=== PATIENT | male | born 1950 | race Caucasian/White ===

== ENCOUNTER 2018-03-16 11:18 | Emergency (ER) | payer OTHER ==
[2018-03-16 11:25] VITALS: BMI 22.0
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
[2018-03-16 13:22] LABS: BASO % 0.3 % (0-2.0); EOS % 0.5 % (0-4.5); HEMATOCRIT 39.6 % (35.4-49); HEMOGLOBIN 13.8 GM/dL (11.7-16.9); LYMPH % 7.1 % (8-40); MCH 32.1 pg (25.7-33.7); MCHC 34.7 g/dl (32.0-35.9); MEAN CELL VOLUME 92.5 fl (80-96); MEAN PLT VOLUME 7.2 fl (7.5-11.1); MONO % 6.7 % (3.8-10.2); NEUT % 85.4 % (42.8-82.8); PLATELET COUNT 165 K/MM3 (134-434); RBC 4.28 M/mm3 (4.00-5.60); RDW 12.5 % (11.9-15.9); WHITE BLOOD COUNT 7.6 K/mm3 (4.0-10.0)
[2018-03-16 13:58] LABS: BLOOD UREA NITROGEN 24 mg/dL (7-18); CREATININE 1.1 mg/dL (0.7-1.3); GLUCOSE,RANDOM 104 mg/dL (74-106)
[2018-03-16 13:59] LABS: ALBUMIN 3.7 g/dl (3.4-5.0); ANION GAP 6 (8-16); CALCIUM 8.7 mg/dL (8.5-10.1); CHLORIDE 101 mmol/L (98-107); CO2 29 mmol/L (21-32); SGOT/AST 16 U/L (15-37); SGPT/ALT 26 U/L (12-78); SODIUM 136 mmol/L (136-145)
[2018-03-16 14:03] LABS: ALK PHOS 67 U/L (45-117); BILIRUBIN,TOTAL 0.2 mg/dL (0.2-1.0); TOT PROT 6.7 g/dl (6.4-8.2)
[2018-03-16] MEDS ORDERED: BACITRACIN 0.9 GM PACKET TP ONE (15:53)
[2018-03-16 16:04] VITALS: BP 143/78; PULSE 66; TEMP 98
--- NOTE | 2018-03-16 16:10 | EKG ---
Test Reason : Blood Pressure : / mmHG Vent. Rate : 060 BPM Atrial Rate : 060 BPM P-R Int : 200 ms QRS Dur : 106 ms QT Int : 434 ms P-R-T Axes : 079 015 050 degrees QTc Int : 434 ms NORMAL SINUS RHYTHM NORMAL ECG NO PREVIOUS ECGS AVAILABLE Confirmed by CINTHIA FOLEY MD ([id number]) on 03/16/2018 4:10:01 PM Referred By: Confirmed By:CINTHIA FOLEY MD
== END 2018-03-16 16:15 | disposition home or self-care (01) ==
LOC: JER 11:18
DX: S00.211A Abrasion of right eyelid and periocular area, initial encounter (principal); S00.31XA Abrasion of nose, initial encounter; W18.39XA Other fall on same level, initial encounter; Y93.89 Activity, other specified; Y92.038 Other place in apartment as the place of occurrence of the external cause; Y99.8 Other external cause status; R26.2 Difficulty in walking, not elsewhere classified; G40.909 Epilepsy, unspecified, not intractable, without status epilepticus; I10 Essential (primary) hypertension; E78.5 Hyperlipidemia, unspecified; F17.210 Nicotine dependence, cigarettes, uncomplicated
CPT/HCPCS: 36415; 70450-TC; 70480-TC; 80053; 82550; 84484; 85025; 93005; 93010; 99284-25

== ENCOUNTER 2018-12-15 15:57 | Emergency (ER) | payer OTHER | END 2018-12-15 21:00 | disposition left against medical advice (07) | LOC: JER 15:57 ==

== ENCOUNTER 2018-12-16 18:02 | Inpatient (IN) | payer OTHER ==
[2018-12-16 18:36] LABS: BASO % 0.2 % (0-2.0); EOS % 0.4 % (0-4.5); HEMATOCRIT 35.9 % (35.4-49); HEMOGLOBIN 13.2 GM/dL (11.7-16.9); LYMPH % 15.1 % (8-40); MCH 34.1 pg (25.7-33.7); MCHC 36.9 g/dl (32.0-35.9); MEAN CELL VOLUME 92.4 fl (80-96); MEAN PLT VOLUME 7.3 fl (7.5-11.1); MONO % 10.1 % (3.8-10.2); NEUT % 74.2 % (42.8-82.8); PLATELET COUNT 164 K/MM3 (134-434); RBC 3.88 M/mm3 (4.00-5.60); RDW 12.6 % (11.9-15.9); WHITE BLOOD COUNT 6.9 K/mm3 (4.0-10.0)
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
[2018-12-16 19:11] LABS: ALBUMIN 3.8 g/dl (3.4-5.0); ALK PHOS 83 U/L (45-117); ANION GAP 7 MMOL/L (8-16); BILIRUBIN,TOTAL 0.3 mg/dL (0.2-1); BLOOD UREA NITROGEN 40 mg/dL (7-18); CALCIUM 8.4 mg/dL (8.5-10.1); CHLORIDE 104 mmol/L (98-107); CO2 30 mmol/L (21-32); CREATININE 1.5 mg/dL (0.55-1.3); GLUCOSE,RANDOM 130 mg/dL (74-106); POTASSIUM 3.9 mmol/L (3.5-5.1); SGOT/AST 10 U/L (15-37); SGPT/ALT 22 U/L (13-61); SODIUM 141 mmol/L (136-145)
[2018-12-16 19:32] LABS: INR 1.05 (0.83-1.09); PROTHROMBIN TIME (PATIENT) 12.4 SEC (9.7-13.0)
--- NOTE | 2018-12-16 20:19 | PDOC ---
Attending Attestation - Resident Resident Name: Kingsley Fagan - ED Attending Attestation I have performed the following: I have examined & evaluated the patient, The case was reviewed & discussed with the resident, I agree w/resident's findings & plan, Exceptions are as noted - Medical Decision Making 12/16/18 20:19 A portion of this note was documented by scribe services under my direction. I have reviewed the details of the note, within reason, and agree with the documentation with the following case summary and management plan written by me. Patient treated in the ED. Nursing notes are reviewed and incorporated into the medical decision-making. Vital signs reviewed. Peripheral IV access obtained by the nurse, laboratory studies are drawn and sent, reviewed and interpreted by myself. Vital Signs Temp Pulse Resp BP Pulse Ox 98.4 F 76 20 121/63 99 12/16/18 18:17 12/16/18 18:17 12/16/18 18:17 12/16/18 18:17 12/16/18 18:22 68-year-old male with history of epilepsy, hypertension, hyperlipidemia, essential tremors presents with slurring of speech and gait imbalance. Yesterday , the patient had an episode where he felt weak in the knees and fell on his face. Patient went to the ER yesterday but due to [employer] downtime, there is no online documentation. However, the CAT scan demonstrated acute nasal fracture alongside a questionable with LeFort fracture one versus 2. This morning, the patient's family noted that he was slurring his speech and was having difficulty emulating. He typically is in articulate man. No chest pain or shortness of breath. No recent illnesses, fevers or chills. Because of the symptoms, the patient came to the ER. Given that the patient has a LeFort fracture, we'll consult ENT. I suggested the patient receive antibiotics for prophylaxis. Disposition per ENT. Could the head trauma cause a posterior situation stroke? We'll need a head CT. Concussion is also within the differential. According to the family, the slurring speech is improved drastically in the gait seems to be improved. However, TIA needs to be evaluated. If the head CT demonstrates no acute deficits, would advised patient to the hospital for an MRI of the brain and carotid Dopplers. 12/16/18 21:11 CBC, BMP 12/16/18 18:24 12/16/18 18:24 CMP Sodium 141 mmol/L (136-145) 12/16/18 18:24 Potassium 3.9 mmol/L (3.5-5.1) 12/16/18 18:24 Chloride 104 mmol/L (98-107) 12/16/18 18:24 Carbon Dioxide 30 mmol/L (21-32) 12/16/18 18:24 Anion Gap 7 MMOL/L (8-16) L 12/16/18 18:24 BUN 40 mg/dL (7-18) H 12/16/18 18:24 Creatinine 1.5 mg/dL (0.55-1.3) H 12/16/18 18:24 Creat Clearance w eGFR 46.82 (>60) 12/16/18 18:24 Random Glucose 130 mg/dL (74-106) H 12/16/18 18:24 Calcium 8.4 mg/dL (8.5-10.1) L 12/16/18 18:24 Total Bilirubin 0.3 mg/dL (0.2-1) 12/16/18 18:24 AST 10 U/L (15-37) L 12/16/18 18:24 ALT 22 U/L (13-61) 12/16/18 18:24 Alkaline Phosphatase 83 U/L (45-117) 12/16/18 18:24 Creatine Kinase 51 U/L (26-308) 12/16/18 18:24 Troponin I < 0.02 ng/ml (0.00-0.05) 12/16/18 18:24 Total Protein 7.0 g/dl (6.4-8.2) 12/16/18 18:24 Albumin 3.8 g/dl (3.4-5.0) 12/16/18 18:[address] spine negative. Will give IV ancef for Le Forte Fracture. Admit <Brock Cartagena - Last Filed: 12/16/18 21:11> - HPI HPI: 12/16/18 21:00 The patient is a 68 year old male, with a significant past medical history of Epilepsy, HTN, HLD, who presents to the emergency department for slurred speech and ataxic gait at 9:30am. Patient was seen in the the ER yesterday for a fall at which time he knees buckled and he felt weak, falling onto his face. Patient s CT scan depicted acute nasal fracture alongside a questionable with LeFort fracture one versus two. He denies any recent fevers, chills, headache or dizziness. He denies any recent nausea, vomit, diarrhea or constipation. He denies any recent chest pain or shortness of breath. He denies any recent dysuria, frequency, urgency or hematuria. Allergies: NKDA Primary Care Physician/Neurologist: [facility] - Physicial Exam PE: 12/16/18 21:00 GENERAL: Awake, alert, and fully oriented, in no acute distress +HEAD: Abrasions to the nasal bridge and right maxilla with associated tenderness. ENT: Hearing grossly normal. NECK: Normal ROM. LUNGS: Breath sounds equal, clear to auscultation bilaterally. No wheezes, and no crackles HEART: Regular rate and rhythm, normal S1 and S2, no murmurs, rubs or gallops ABDOMEN: Soft, nontender. No guarding, no rebound. No masses EXTREMITIES: Normal range of motion, no edema. No clubbing or cyanosis. No cords, erythema, or tenderness NEUROLOGICAL: Alert, awake, appropriate. Cranial nerves 2-12 intact. No deficits to light touch and temperature in face, upper extremities and lower extremities. No motor deficits in the in face, upper extremities and lower extremities. No pronator drift. Normoreflexic in the upper and lower extremities. Normal speech. 5/5 strength intact to the upper and lower extremities. No dysarthria. No dysdiadochokinesia. Heel to henderson normal. Finger to nose normal. Gait is normal without ataxia. - Medical Decision Making 12/16/18 20:[address] Garrett's answering service, ENT framing consultant, on hold for 5min. Will call back. 20:40 Second call placed to Dr. Garrett's answering service, ENT framing consultant, on hold for 5min. 20:[address] Queen, ENT, awaiting call back. <Olga Rodriguez - Last Filed: 12/16/18 21:57> Heart Score/ECG Review #1 ECG reviewed & interpreted by me at: 18:40 12/16/18 21:09 NSR 71, no std/calvin, ?biphasic T wave V2-V3, normal axis, normal intervals, QTC 443 msec <Brock Cartagena - Last Filed: 12/16/18 21:11> NIH Stroke Scale - Last Known Well Date/Time & Onset Date Last Known Well: 12/16/18 Time Last Known Well: 09:30 - Initial Evaluation Level of consciousness: Alert Ask patient the month and their age: Answers both correctly Ask patient to open & close eyes; make fist and let go: Obeys both correctly Best gaze (horizontal eye movement): Normal Visual field testing: No visual field loss Facial paresis (Show teeth/raise eyebrows/close eyes tight): Normal symmetrical movement Motor Function: Left Arm: Normal Motor Function: Right Arm: Normal (extends arm 90 (or 45) degrees for 10 seconds without drift Motor Function: Left Leg: Normal (extends leg 30 degrees for 5 seconds without drift) Motor Function: Right Leg: Normal (extends leg 30 degrees for 5 seconds without drift) Limb Ataxia: No ataxia Sensory(Use pinprick test arms,legs,trunk,face/side to side): Normal Best language (Describe picture, name items, read sentences): No Aphasia Dysarthria (read several words): Normal articulation Extinction and Inattention: No abnormality - Total Score NIH Stroke Scale Score: 0 <Brock Cartagena - Last Filed: 12/16/18 21:11> Attestations - Attestations 12/16/18 21:02 Documentation prepared by Olga Rodriguez, acting as medical reviewer for Brock Cartagena MD. <Olga Rodriguez - Last Filed: 12/16/18 21:57>
[2018-12-16] MEDS ORDERED: ceFAZolin 2 GRAM PREMIX BAG IVPB ONE (20:31)
[2018-12-16] MEDS ORDERED: CEFAZOLIN 2 GM/D5W 2 GM/50 ML ML IVPB ONE (20:45)
[2018-12-16] MEDS ORDERED: CEFAZOLIN 1 GM/D5W 1 GM/50 ML BAG ONE ×2 (21:32→23:12)
--- NOTE | 2018-12-16 23:05 | HP ---
CHIEF COMPLAINT:slurred speech/weakness PCP: HISTORY OF PRESENT ILLNESS: 68 y/o male with PMH of epilespy, HTN, HLD presented to the ED with complaints of slurred speech, difficulty finding words and speaking. Of note, patient came to this ED last night after suffering a fall from a bus- he felt his knees just gave out on him and he fell to the ground hitting his face, however he was ok to be discharged from ED., His and daughter state that this morning he was not himself- he had slurred speech, difficulty finishing sentences and his gait was off. However by the time he got to the ER his symptoms had resolved and he was back to his baseline. He denies any recent changes to any of his medications nor has anything ever happened like this to him in the past. Patient fund to have a [place] type 1 fracture that was picked up onCT scan today which had gone unseen yesterday when he came to the ED ER course was notable for: (1)vitals wnl (2)labs significnt for KADE with Cr at 1.5 (3)head/c spine negative for any acute patholgoy; no fracture Recent Travel: denies PAST MEDICAL HISTORY: see above PAST SURGICAL HISTORY: skin grafting multiple from [place] Social History: Smoking:current everyday smoker 5 cigarettes/day Alcohol:denies Drugs: denies Family History: Allergies No Known Allergies Allergy (Verified 12/15/18 16:03) HOME MEDICATIONS: Home Medications Medication Instructions Recorded Simvastatin 40 mg PO HS 03/16/18 Amlodipine Besylate 10 mg PO DAILY 12/16/18 Aspirin [ASA -] 81 mg PO DAILY 12/16/18 Carbamazepine Xr [Tegretol Xr -] 400 mg PO BID 12/16/18 Hydrochlorothiazide 25 mg PO DAILY 12/16/18 Lisinopril 10 mg PO DAILY 12/16/18 Metoprolol Succinate [Toprol Xl] 200 mg PO DAILY 12/16/18 Multivitamin [One-Daily 1 each PO DAILY 12/16/18 Multi-Vitamin] Primidone 100 mg PO BID 12/16/18 REVIEW OF SYSTEMS CONSTITUTIONAL: Absent: fever, chills, diaphoresis, generalized weakness, malaise, loss of appetite, weight change HEENT: Absent: rhinorrhea, nasal congestion, throat pain, throat swelling, difficulty swallowing, mouth swelling, ear pain, eye pain, visual changes CARDIOVASCULAR: Absent: chest pain, syncope, palpitations, irregular heart rate, lightheadedness , peripheral edema RESPIRATORY: Absent: cough, shortness of breath, dyspnea with exertion, orthopnea, wheezing, stridor, hemoptysis GASTROINTESTINAL: Absent: abdominal pain, abdominal distension, nausea, vomiting, diarrhea, constipation, melena, hematochezia GENITOURINARY: Absent: dysuria, frequency, urgency, hesitancy, hematuria, flank pain, genital pain MUSCULOSKELETAL: Absent: myalgia, arthralgia, joint swelling, back pain, neck pain SKIN: Absent: rash, itching, pallor HEMATOLOGIC/IMMUNOLOGIC: Absent: easy bleeding, easy bruising, lymphadenopathy, frequent infections ENDOCRINE: Absent: unexplained weight gain, unexplained weight loss, heat intolerance, cold intolerance NEUROLOGIC: Present: dizziness, unsteady gait,Absent: headache, focal weakness or paresthesias,, seizure, mental status changes, bladder or bowel incontinence PSYCHIATRIC: Absent: anxiety, depression, suicidal or homicidal ideation, hallucinations. PHYSICAL EXAMINATION Vital Signs - 24 hr 12/16/18 12/16/18 12/16/18 18:17 18:22 20:00 Temperature 98.4 F 98.1 F Pulse Rate 76 Pulse Rate [ 66 Apical] Respiratory 20 16 Rate Blood Pressure 121/63 Blood Pressure 129/66 [Right] O2 Sat by Pulse 100 98 100 Oximetry (%) GENERAL: Awake, alert, and fully oriented, in no acute distress. EYES: EOMI; no scleral icterus; PEERLA EARS, NOSE, THROAT: abrasion on nose above right eyebrow. abrasion on right cheek. NECK: no JVD; no lymphadenopathy LUNGS: CTA B/L; no rales, rhonchi or wheezing HEART: Regular rate and rhythm, normal S1 and S2 without murmur, rub or gallop. ABDOMEN: Soft, nontender, not distended, normoactive bowel sounds, no guarding, no rebound, no masses. No hepatomegaly or splenomegaly. MUSCULOSKELETAL: Normal range of motion at all joints. No bony deformities or tenderness. No CVA tenderness. EXTREMITIES; warm; well-perfuaed; no clubbing/cyanosis or edema NEUROLOGICAL: Cranial nerves II-XII intact. Normal speech. Normal gait. strength 5/5 B?L upper and lower extremities; sensation intact B/L PSYCHIATRIC: Cooperative. Good eye contact. Appropriate mood and affect. SKIN: Warm, dry, normal turgor, no rashes or lesions noted, normal capillary refill. Laboratory Results - last 24 hr 12/16/18 12/16/18 12/16/18 18:24 18:24 18:24 WBC 6.9 RBC 3.88 L Hgb 13.2 Hct 35.9 MCV 92.4 MCH 34.1 H MCHC 36.9 H RDW 12.6 Plt Count 164 MPV 7.3 L Absolute Neuts (auto) 5.1 Neutrophils % 74.2 Lymphocytes % 15.1 D Monocytes % 10.1 Eosinophils % 0.4 Basophils % 0.2 Nucleated RBC % 0 PT with INR 12.40 INR 1.05 Sodium 141 Potassium 3.9 Chloride 104 Carbon Dioxide 30 Anion Gap 7 L BUN 40 H Creatinine 1.5 H Creat Clearance w eGFR 46.82 Random Glucose 130 H Calcium 8.4 L Total Bilirubin 0.3 AST 10 L ALT 22 Alkaline Phosphatase 83 Creatine Kinase 51 Troponin I < 0.02 Total Protein 7.0 Albumin 3.8 Blood Type Antibody Screen 12/16/18 18:24 WBC RBC Hgb Hct MCV MCH MCHC RDW Plt Count MPV Absolute Neuts (auto) Neutrophils % Lymphocytes % Monocytes % Eosinophils % Basophils % Nucleated RBC % PT with INR INR Sodium Potassium Chloride Carbon Dioxide Anion Gap BUN Creatinine Creat Clearance w eGFR Random Glucose Calcium Total Bilirubin AST ALT Alkaline Phosphatase Creatine Kinase Troponin I Total Protein Albumin Blood Type B POSITIVE Antibody Screen Negative ASSESSMENT/PLAN: 68 y/o male with PMH of epilepsy, HTN. HLD presented to the ED with slurred speech/trouble walking one day after having a possible syncopal episode #? TIA head CT negative for any acute intracranial pathology -neuro consulted -consider brain MRI -NIHH scale 0 on arrival -echo/doppler -monitor on tele -lipid profile -Hba1c #Epilepsy carbamezapine level pending; came back elevated at 13.1 wll hold patients home meds of primidone 100 BID and carbamezapine 400 BID -neuro consulted #[place] Fracture patient received prophylaxis antibiotic in ED -ENT consulted -also consider plastics consult #HTN c/w toprol XL 200 daily lisinopril 10 daily HCTZ 25 amlodipine 10 #HLD c/w simvastatin 40 daily DVT PPX: heparin sq F/E/N not on fluids monitor electrolytes sodium-restricted diet dipso: tele-inpatient Problem List - Problem (1) [place] I fracture of maxilla Code(s): S02.411A - LEFORT I FRACTURE, INITIAL ENCOUNTER FOR CLOSED FRACTURE Qualifiers: Encounter type: initial encounter Fracture type: closed Qualified Code(s) : S02.411A - [place] I fracture, initial encounter for closed fracture (2) TIA (transient ischemic attack) Code(s): G45.9 - TRANSIENT CEREBRAL ISCHEMIC ATTACK, UNSPECIFIED (3) Closed head injury Code(s): S09.90XA - UNSPECIFIED INJURY OF HEAD, INITIAL ENCOUNTER Qualifiers: Encounter type: initial encounter Qualified Code(s): S09.90XA - Unspecified injury of head, initial encounter Visit type - Emergency Visit Emergency Visit: Yes ED Registration Date: 12/16/18 Care time: The patient presented to the Emergency Department on the above date and was hospitalized for further evaluation of their emergent condition. - New Patient This patient is new to me today: Yes Date on this admission: 12/17/18 - Critical Care Critical Care patient: No
--- NOTE | 2018-12-16 23:15 | PN ---
Teaching Attending Note Name of Resident: Miracle Cancino ATTENDING PHYSICIAN STATEMENT I saw and evaluated the patient. I reviewed the resident's note and discussed the case with the resident. I agree with the resident's findings and plan as documented. SUBJECTIVE: Seen and examined; please refer to resident note for further historical information. Briefly, this is a 68 y/o male with a PMH of epilepsy on carbemazepime, tremor, etc. presenting to the ER with a CC of slurred speech and gait disturbance in the AM that has completely resolved. It was noted by his family that he was abnormal at 9AM; last known well was 11AM before. Once symptoms resolved he was sleepy all day. No loss bowel, bladder functions. No tonic-clonic movements, LOC, confusion, etc. He was seen in the ER last night for a fall and had a CT done at that time that showed acute bilateral maxillary sinus fracture with a L-[place] fx (type I vs. type II) seen as well as an acute displaced bilateral nasal fracture as well as an acute fracture involving the nasal septum; events as per their notes are noted and he was discharged home. He has had multiple falls in the past and has had recurring dizziness. Does not miss doses of his seizure medication. No recent medication changes. His primary neurologist is in [place]. His NIHSS is 0. He will be monitored on telemetry with a neurology consultation. ENT was consulted by the ER 10 sys ROS done and negative aside from HPI PMH, PSH, Social hx, Family hx reviewed Medication list reviewed; reconciliation pending OBJECTIVE: VS, labs, imaging reviewed NAD, AAO, resting comfortably in bed. Facial bruising evident. NC, facial trauma noted, EOMI, PERRLA. Able to breathe through both nostrils without any issue. RRR s1/2 no mgr Lungs CTAB, w/ sym exp ASSESSMENT AND PLAN: Patient with a history of epilepsy presents to the ER with slurred speech and gait disturbance which is now resolved. He was seen yesterday in the ER and discharged; today found on report to have facial fractures. ENT and Neurology to see 1) R/O TIA -Placing on telemetry; monitor neuro checks and place on seizure precuations. -Lipids, A1c, TSH; MRI brain in AM and carotid dopplers ordered. Followup swallow eval and PT eval. Fall precuations -Neuro consult -Consider other items on the ddx (given hx sz, etc.). Holding off on ASA given the fractures seen until cleared by ENT. 2) Facial fractures -As described in HPI -ENT to see; PRN pain control 3) Hx epilepsy -States no missed doses; on sz precautions, continue home meds 4) Frequent Falls -PT eval prior to DC 5) Elevated Cr -1.5; I am assuming it was checked yesterday but values unavailable due to downtime -Can put on 50cc LR/hr overnight 6) Tremor -Continue home primidone Full Code
[2018-12-17 06:53] LABS: BASO % 0.1 % (0-2.0); EOS % 0.2 % (0-4.5); HEMATOCRIT 35.7 % (35.4-49); HEMOGLOBIN 12.7 GM/dL (11.7-16.9); LYMPH % 17.7 % (8-40); MCH 32.9 pg (25.7-33.7); MCHC 35.6 g/dl (32.0-35.9); MEAN CELL VOLUME 92.5 fl (80-96); MEAN PLT VOLUME 7.1 fl (7.5-11.1); MONO % 9.9 % (3.8-10.2); NEUT % 72.1 % (42.8-82.8); PLATELET COUNT 153 K/MM3 (134-434); RBC 3.87 M/mm3 (4.00-5.60); RDW 12.3 % (11.9-15.9); WHITE BLOOD COUNT 6.8 K/mm3 (4.0-10.0)
[2018-12-17 07:29] LABS: ALBUMIN 3.6 g/dl (3.4-5.0); ALK PHOS 79 U/L (45-117); ANION GAP 6 MMOL/L (8-16); BILIRUBIN,TOTAL 0.3 mg/dL (0.2-1); BLOOD UREA NITROGEN 35 mg/dL (7-18); CALCIUM 8.6 mg/dL (8.5-10.1); CHLORIDE 105 mmol/L (98-107); CHOLESTEROL 169 mg/dL (50-200); CO2 28 mmol/L (21-32); CREATININE 1.3 mg/dL (0.55-1.3); GLUCOSE,RANDOM 87 mg/dL (74-106); HDL CHOLESTEROL 37 mg/dL (40-60); MAGNESIUM 2.4 mg/dL (1.8-2.4); PHOSPHOROUS 3.7 mg/dL (2.5-4.9); POTASSIUM 4.1 mmol/L (3.5-5.1); SGOT/AST 9 U/L (15-37); SGPT/ALT 19 U/L (13-61); SODIUM 138 mmol/L (136-145); TOT PROT 6.7 g/dl (6.4-8.2); TRIGLYCERIDES 121 mg/dL (0-150)
[2018-12-17] MEDS ORDERED: carBAMazepine 200 MG TABLET ONE (08:22)
[2018-12-17] MEDS ORDERED: ASPIRIN 81 MG CHEWABLE TABLETS ONE (08:22)
[2018-12-17] MEDS: carBAMazepine 200 MG TABLET PO SCH ×2 (09:44→21:57)
[2018-12-17] MEDS: ASPIRIN 81 MG CHEWABLE TABLETS PO SCH (09:44)
[2018-12-17] MEDS ORDERED: LISINOPRIL 10 MG TABLET (FP) PO SCH (10:00)
[2018-12-17] MEDS ORDERED: MULTIVITAMINS (DAILY MVI) TABLET (FP) PO SCH (10:00)
[2018-12-17] MEDS ORDERED: carBAMazepine XR 400 MG TAB.ER.12H PO SCH (10:00)
[2018-12-17] MEDS ORDERED: PRIMIDONE 50 MG TABLET PO SCH (10:00)
[2018-12-17] MEDS ORDERED: amLODIPine BESYLATE 10 MG TABLET (FP) PO SCH (10:00)
[2018-12-17] MEDS ORDERED: HYDROCHLOROTHIAZIDE 25 MG TABLET (FP) PO SCH (10:00)
[2018-12-17] MEDS ORDERED: SODIUM CHLORIDE 1,000 ML IV SCH (10:45)
--- NOTE | 2018-12-17 10:45 | PN ---
Progress Note (short form) - Note Progress Note: Subjective: Denies any pain, fever or chills. has no MONTALVO , no visual changes, no numbness tingling or weakness. reports that first fall 2 days ago, was not syncope. his legs gave out and fell getting out of the bus. yesterday , he did not have syncope , but he remembers having slurred speech . last seizure was 1.5 yr ago. he has [place] seizures Objective: Vital Signs: Last Vital Signs Temp Pulse Resp BP Pulse Ox 98.8 F 82 18 101/73 99 12/17/18 06:39 12/17/18 06:39 12/17/18 06:39 12/17/18 06:39 12/17/18 06:39 Laboratory Results - last 24 hr 12/16/18 12/16/18 12/16/18 18:24 18:24 18:24 WBC 6.9 RBC 3.88 L Hgb 13.2 Hct 35.9 MCV 92.4 MCH 34.1 H MCHC 36.9 H RDW 12.6 Plt Count 164 MPV 7.3 L Absolute Neuts (auto) 5.1 Neutrophils % 74.2 Lymphocytes % 15.1 D Monocytes % 10.1 Eosinophils % 0.4 Basophils % 0.2 Nucleated RBC % 0 PT with INR 12.40 INR 1.05 Sodium 141 Potassium 3.9 Chloride 104 Carbon Dioxide 30 Anion Gap 7 L BUN 40 H Creatinine 1.5 H Creat Clearance w eGFR 46.82 Random Glucose 130 H Hemoglobin A1c % Calcium 8.4 L Phosphorus Magnesium Total Bilirubin 0.3 AST 10 L ALT 22 Alkaline Phosphatase 83 Creatine Kinase 51 Troponin I < 0.02 Total Protein 7.0 Albumin 3.8 Triglycerides Cholesterol Total LDL Cholesterol HDL Cholesterol Carbamazepine Blood Type Antibody Screen 12/16/18 12/16/18 12/17/18 18:24 23:00 06:30 WBC 6.8 RBC 3.87 L Hgb 12.7 Hct 35.7 MCV 92.5 MCH 32.9 MCHC 35.6 RDW 12.3 Plt Count 153 MPV 7.1 L Absolute Neuts (auto) 4.9 Neutrophils % 72.1 Lymphocytes % 17.7 Monocytes % 9.9 Eosinophils % 0.2 Basophils % 0.1 Nucleated RBC % 0 PT with INR INR Sodium Potassium Chloride Carbon Dioxide Anion Gap BUN Creatinine Creat Clearance w eGFR Random Glucose Hemoglobin A1c % Calcium Phosphorus Magnesium Total Bilirubin AST ALT Alkaline Phosphatase Creatine Kinase Troponin I Total Protein Albumin Triglycerides Cholesterol Total LDL Cholesterol HDL Cholesterol Carbamazepine 13.1 H Blood Type B POSITIVE Antibody Screen Negative 12/17/18 12/17/18 06:30 06:30 WBC RBC Hgb Hct MCV MCH MCHC RDW Plt Count MPV Absolute Neuts (auto) Neutrophils % Lymphocytes % Monocytes % Eosinophils % Basophils % Nucleated RBC % PT with INR INR Sodium 138 Potassium 4.1 Chloride 105 Carbon Dioxide 28 Anion Gap 6 L BUN 35 H Creatinine 1.3 Creat Clearance w eGFR 55.23 Random Glucose 87 Hemoglobin A1c % 5.9 Calcium 8.6 Phosphorus 3.7 Magnesium 2.4 Total Bilirubin 0.3 AST 9 L ALT 19 Alkaline Phosphatase 79 Creatine Kinase Troponin I Total Protein 6.7 Albumin 3.6 Triglycerides 121 Cholesterol 169 Total LDL Cholesterol 113 H HDL Cholesterol 37 L Carbamazepine Blood Type Antibody Screen Physical Exam: NAD, Awake, alert , oriented x3. HEENT: EOMI, round equal pupils, reactive to light , no facial droop. abrasions on nose and deviated septum . CV; RRR, no MRG Lungs: CTAB Ext: no edema or erythema Abd: soft, NT, ND , NL BS , scars on skin Neuro : EOMi, round equal pupils, reactive to light. no facial droop, strength 5 /5 in upper and lower extremities proximally and distally. sensation to light touch NL. reflexes 2 + biceps and knee jerk. Imaging: CT head and C spine reviwed. CT facial bones form 2 days ago reviewed. CUS reviewed. Assessment/Plan: 68 y/o man with h/ho HTN, HLP, and [place] seizures, and recent mechanical fall who presented with slurred speech and abnormal gait. 1- Slurred speech : resolved. DDX include postictal state , VS TIA, VS orthostatic hypotension - tele for arrythmias. - NL neuro exam. MRI . neuro consult pending - hod BP meds and give IVF 2- h/o Seizures : - cont Tegretol BID . level noted . neuro Input - has an apt with his neuro in few days 3- s/p mechanical fall on 12/15/18. with resultant facial and nasal Fractures. - ENT eval pending . called by ER - possible subdural hygroma , MRI pending . Neuro input. 4- H/o HTN: now hypotensive SBP in 90s. with evidence of volume depletion ( KADE ) . - start IVF - hold BP meds 5- DVT PX : heparin sq Meds were confirmed with him and MED rec was updated Visit type - Emergency Visit Emergency Visit: Yes ED Registration Date: 12/16/18 Care time: The patient presented to the Emergency Department on the above date and was hospitalized for further evaluation of their emergent condition. - New Patient This patient is new to me today: Yes Date on this admission: 12/17/18 - Critical Care Critical Care patient: No
--- NOTE | 2018-12-17 12:34 | CON.NEURO ---
Consult Consult Specialty:: [place] Referred by:: ED - History of Present Illness History of Present Illness: 68-year-old right-handed man with history of Coronary artery disease Hypertension High ccholesterol Seizure disorder on Tegretol Patient was coming out of the bus when he slipped and fell Sustained head trauma patient came into the emergency room with slurred speech Patient denies any seizure-like activity Patient Tegretol level was 13 CAT scan of the head revealed evidence of extra- axial fluid with mild posterior like picture I review the CAT scan from previous CAT scan This does not subdural hematoma - History Source Limitations to Obtaining History: No Limitations - Alcohol/Substance Use Hx Alcohol Use: No - Smoking History Smoking history: Current every day smoker Have you smoked in the past 12 months: Yes Aproximately how many cigarettes per day: 5 Home Medications - Allergies Allergies/Adverse Reactions: Allergies Allergy/AdvReac Type Severity Reaction Status Date / Time No Known Allergies Allergy Verified 12/15/18 16:03 - Home Medications Home Medications: Ambulatory Orders Simvastatin 40 mg PO HS 03/16/18 Amlodipine Besylate 10 mg PO DAILY 12/16/18 Aspirin [ASA -] 81 mg PO DAILY 12/16/18 Carbamazepine Xr [Tegretol Xr -] 400 mg PO BID 12/16/18 Hydrochlorothiazide 25 mg PO DAILY 12/16/18 Lisinopril 10 mg PO DAILY 12/16/18 Metoprolol Succinate [Toprol Xl] 200 mg PO DAILY 12/16/18 Multivitamin [One-Daily Multi-Vitamin] 1 each PO DAILY 12/16/18 Primidone 100 mg PO DAILY 12/16/18 Family Disease History - Family Disease History Family History: Unable to Obtain Physical Exam-Neuro Vital Signs: Vital Signs Temperature 98.1 F 12/17/18 11:55 Pulse Rate 86 12/17/18 11:55 Respiratory Rate 18 12/17/18 11:55 Blood Pressure 134/63 12/17/18 11:55 O2 Sat by Pulse Oximetry (%) 97 12/17/18 11:55 Labs: CBC, BMP 12/17/18 06:30 12/17/18 06:30 INR, PTT INR 1.05 (0.83-1.09) 12/16/18 18:24 - Neuro Exam Level Of Consciousness: Yes: Oriented to Person, Oriented to Place, Oriented to Time Eyes: Yes: PERRLA Speech: WNL Dominant Hand: Right Cranial Nerves II-XII Intact: Yes Gag: Present DTR's: 1+ Left Bicep, 1+ Right Bicep, 1+ Left Tricep, 1+ Right Tricep Imaging - Results Cat Scan: Image Reviewed Problem List - Problems (1) Closed head injury Assessment/Plan: epilepsy Subdural hematoma Slurred speech Postconcussion syndrome 1. No evidence of Tegretol toxicity 2. Continue Tegretol the same 3. 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 Seizure precautions 5. Ativan when necessary seizure 6. Speech evaluation Vo snot need monitored setting Thank you very much for the kind referral Code(s): S09.90XA - UNSPECIFIED INJURY OF HEAD, INITIAL ENCOUNTER Qualifiers: Encounter type: initial encounter Qualified Code(s): S09.90XA - Unspecified injury of head, initial encounter
[2018-12-17] MEDS: PRIMIDONE 50 MG TABLET PO SCH (13:04)
[2018-12-17 16:39] VITALS: BMI 21.7
[2018-12-17] MEDS: ATORVASTATIN CA 20 MG TABLET (FP) PO SCH (21:16)
[2018-12-17] MEDS: HEPARIN NA (PORCINE) 5,000 UNITS/ML 1ML VIAL SQ SCH ×2 (21:17→22:12)
[2018-12-18] MEDS: HEPARIN NA (PORCINE) 5,000 UNITS/ML 1ML VIAL SQ SCH ×3 (05:32→21:30)
[2018-12-18 06:09] LABS: BASO % 0.1 % (0-2.0); EOS % 0.5 % (0-4.5); HEMOGLOBIN 11.4 GM/dL (11.7-16.9); LYMPH % 22.3 % (8-40); MCHC 35.6 g/dl (32.0-35.9); MEAN CELL VOLUME 92.7 fl (80-96); MEAN PLT VOLUME 7.1 fl (7.5-11.1); MONO % 9.7 % (3.8-10.2); NEUT % 67.4 % (42.8-82.8); PLATELET COUNT 119 K/MM3 (134-434); RBC 3.45 M/mm3 (4.00-5.60); RDW 12.3 % (11.9-15.9); WHITE BLOOD COUNT 5.1 K/mm3 (4.0-10.0)
[2018-12-18 06:44] LABS: ANION GAP 4 MMOL/L (8-16); BLOOD UREA NITROGEN 27 mg/dL (7-18); CALCIUM 8.3 mg/dL (8.5-10.1); CHLORIDE 107 mmol/L (98-107); CO2 29 mmol/L (21-32); CREATININE 1.2 mg/dL (0.55-1.3); GLUCOSE,RANDOM 99 mg/dL (74-106); PHOSPHOROUS 2.8 mg/dL (2.5-4.9); SODIUM 140 mmol/L (136-145)
--- NOTE | 2018-12-18 08:05 | PN ---
Physical Exam: SUBJECTIVE: Patient seen and examined and at bedside- no acute events overnight ; patient states that he is feeling better hes not had anymore episdoes of slurred speech or weakness; patient has been slightly hypotensive since yesterday OBJECTIVE: Vital Signs Period Temp Pulse Resp BP Sys/Hodges Pulse Ox Last 24 Hr 98.0 F-98.6 F 74-95 16-19 98-147/49-78 97-97 GENERAL: The patient is awake, alert, and fully oriented, in no acute distress. EYES:PEERLA; EOMI: no scleral icterus ENT: abrasion on nose above right eyebrow. abrasion on right cheek. NECK: no JVD; no lymphadenopathy LUNGS:CTA B/L; no rales, rhonchi or wheezing. HEART: Regular rate and rhythm, S1, S2 without murmur, rub or gallop. ABDOMEN: Soft, nontender; non-distended +BS in all 4 quadrants EXTREMITIES: 2+ pulses, warm, well-perfused, no edema. NEUROLOGICAL: Cranial nerves II through XII grossly intact. Normal speech, strength: 5/5 BL UE and LE ; sensation fully intact; DTR 2+ PSYCH: Normal mood, normal affect. SKIN: Warm, dry, normal turgor, no rashes or lesions noted Laboratory Results - last 24 hr 12/17/18 12/17/18 12/18/18 06:30 15:35 05:30 WBC 5.1 RBC 3.45 L Hgb 11.4 L Hct 32.0 L MCV 92.7 MCH 33.0 MCHC 35.6 RDW 12.3 Plt Count 119 L D MPV 7.1 L Absolute Neuts (auto) 3.4 Neutrophils % 67.4 Lymphocytes % 22.3 D Monocytes % 9.7 Eosinophils % 0.5 D Basophils % 0.1 Nucleated RBC % 0 Sodium Potassium Chloride Carbon Dioxide Anion Gap BUN Creatinine Creat Clearance w eGFR Random Glucose Hemoglobin A1c % 5.9 Calcium Phosphorus Magnesium Blood Type B POSITIVE 12/18/18 05:30 WBC RBC Hgb Hct MCV MCH MCHC RDW Plt Count MPV Absolute Neuts (auto) Neutrophils % Lymphocytes % Monocytes % Eosinophils % Basophils % Nucleated RBC % Sodium 140 Potassium 5.0 Chloride 107 Carbon Dioxide 29 Anion Gap 4 L BUN 27 H Creatinine 1.2 Creat Clearance w eGFR > 60 Random Glucose 99 Hemoglobin A1c % Calcium 8.3 L Phosphorus 2.8 Magnesium 2.0 Blood Type Active Medications Generic Name Dose Route Start Last Admin Trade Name Byronq PRN Reason Stop Dose Admin Aspirin 81 mg 12/17/18 10:00 12/17/18 09:44 Asa - PO 81 mg DAILY JAMES Administration Atorvastatin Calcium 20 mg 12/17/18 22:00 12/17/18 21:16 Lipitor - PO 20 mg HS JAMES Administration Carbamazepine 400 mg 12/17/18 10:00 12/17/18 21:57 Tegretol - PO 400 mg BID JAMES Administration Heparin Sodium (Porcine) 5,000 unit 12/17/18 20:00 12/18/18 05:32 Heparin - SQ 5,000 unit TID JAMES Administration Sodium Chloride 1,000 mls @ 75 mls/hr 12/17/18 10:45 12/17/18 11:52 Normal Saline - IV 75 mls/hr ASDIR JAMES Administration Primidone 100 mg 12/17/18 10:45 12/17/18 13:04 Mysoline - PO 100 mg DAILY JAMES Administration ASSESSMENT/PLAN: 68 y/o male with PMH of epilepsy, HTN. HLD presented to the ED with slurred speech/trouble walking one day after having a possible syncopal episode #TIA ? -slurred speech and weakness has resolved -neuro consulted -MRI ordered -echo/doppler pending -monitor on tele - possible old subdural? neurosurg consulted #Epilepsy c/w meds of primidone 100 BID and carbamezapine 400 BID -neuro consulted #[place] Fracture -ENT consulted; seeing patient this AM #HTN patient was hypotenisve since yesterday: holding all BP meds toprol XL 200 daily lisinopril 10 daily HCTZ 25 amlodipine 10 #HLD c/w simvastatin 40 daily DVT PPX: heparin sq F/E/N not on fluids monitor electrolytes sodium-restricted diet dipso: tele-inpatient Problem List - Problems (1) [place] I fracture of maxilla Code(s): S02.411A - [place] I FRACTURE, INITIAL ENCOUNTER FOR CLOSED FRACTURE Qualifiers: Encounter type: initial encounter Fracture type: closed Qualified Code(s) : S02.411A - [place] I fracture, initial encounter for closed fracture (2) TIA (transient ischemic attack) Code(s): G45.9 - TRANSIENT CEREBRAL ISCHEMIC ATTACK, UNSPECIFIED (3) Closed head injury Code(s): S09.90XA - UNSPECIFIED INJURY OF HEAD, INITIAL ENCOUNTER Qualifiers: Encounter type: initial encounter Qualified Code(s): S09.90XA - Unspecified injury of head, initial encounter
[2018-12-18] MEDS: PRIMIDONE 50 MG TABLET PO SCH (09:33)
[2018-12-18] MEDS: ASPIRIN 81 MG CHEWABLE TABLETS PO SCH (09:33)
[2018-12-18] MEDS: carBAMazepine 200 MG TABLET PO SCH ×2 (09:33→21:31)
--- NOTE | 2018-12-18 10:42 | EKG ---
Test Reason : Blood Pressure : / mmHG Vent. Rate : 071 BPM Atrial Rate : 071 BPM P-R Int : 196 ms QRS Dur : 108 ms QT Int : 408 ms P-R-T Axes : 076 021 057 degrees QTc Int : 443 ms NORMAL SINUS RHYTHM NONSPECIFIC T WAVE ABNORMALITY ABNORMAL ECG WHEN COMPARED WITH ECG OF 16-MAR-2018 13:09, NO SIGNIFICANT CHANGE WAS FOUND Confirmed by TRINIDAD HAMILTON MD ([id number]) on 12/18/2018 10:42:25 AM Referred By: Confirmed By:TRINIDAD HAMILTON MD
--- NOTE | 2018-12-18 16:00 | PN ---
Teaching Attending Note Name of Resident: Miracle Cancino ATTENDING PHYSICIAN STATEMENT I saw and evaluated the patient. I reviewed the resident's note and discussed the case with the resident. I agree with the resident's findings and plan as documented. SUBJECTIVE: No MONTALVO , no fever or chills . No change in vision. OBJECTIVE: NAD, Awake, alert , oriented x3. HEENT: abrasions on nose and deviated septum . CV; RRR, 2/ 6 SM at base with radiation to carotid Lungs: CTAB Ext: no edema or erythema Neuro : EOMI, round equal pupils, reactive to light. No facial droop, strength 5 /5 in upper and lower extremities proximally and distally. sensation to light touch NL. Reflexes 2 + biceps and knee jerk. Assessment/Plan: 68 y/o man with h/ho HTN, HLP, and [place] seizures, and recent mechanical fall who presented with slurred speech and abnormal gait. 1- Slurred speech: resolved. DDX include postictal state , VS TIA, VS orthostatic hypotension - tele - MRi with volume loss and less likely b/l frontal hygromas - DC IVF 2- h/o Seizures : - cont Tegretol BID . - has an apt with his neuro in few days 3- S/p mechanical fall on 12/15/18. with resultant facial and nasal Fractures. - ENT eval pending. - possible subdural hygroma, neuro sx input pending 4- H/o HTN: now hypertensive. - dc IVF - will start his home meds gradually 5- DVT PX : heparin sq dispo: pending neuro sx and ENT eval
--- NOTE | 2018-12-18 17:37 | ECHO ---
Name: ELLISCINTHIA Exam:Adult Echocardiogram Study Date: 12/18/2018 03:22 PM Age: 68 yrs Reason For Study: TIA Height: 72 in Weight: 186 lb BSA: 2.1 m2 MMode/2D Measurements & Calculations IVSd: 1.1 cm Ao root diam: 3.4 cm LVIDd: 4.6 cm LA dimension: 3.7 cm LVIDs: 3.4 cm LVPWd: 0.85 cm EDV(Teich): 95.1 ml TAPSE: 3.4 cm ESV(Teich): 46.3 ml Doppler Measurements & Calculations MV E max cain: 68.1 cm/sec Ao V2 max: 113.3 cm/sec MV A max cain: 83.9 cm/sec Ao max P.1 mmHg MV E/A: 0.81 MV dec time: 0.19 sec LV V1 max P.2 mmHg TR max cain: 192.6 cm/sec LV V1 max: 89.8 cm/sec TR max P.9 mmHg Med Peak E' Cain: 7.0 cm/sec Med E/e': 9.7 Lat Peak E' Cain: 6.0 cm/sec Lat E/e': 11.3 Procedure A complete two-dimensional transthoracic echocardiogram was performed (2D, M-mode, Doppler and color flow Doppler). Left Ventricle The left ventricle is normal in size. Left ventricular systolic function is normal. Ejection Fraction = 60- 65%. No regional wall motion abnormalities noted. Right Ventricle The right ventricle is normal size. The right ventricular systolic function is normal. RV systolic TD I is 10 cm/s. Atria The left atrial size is normal. Right atrial size is normal. Mitral Valve The mitral valve is normal in structure and function. There is no mitral regurgitation noted. Tricuspid Valve The tricuspid valve is normal in structure and function. There is mild tricuspid regurgitation. Aortic Valve The aortic valve is normal in structure and function. No aortic regurgitation is present. Pulmonic Valve The pulmonic valve is not well visualized. Great Vessels The aortic root is normal size. Pericardium/Pleura There is no pericardial effusion. Interpretation Summary The left ventricle is normal in size. Left ventricular systolic function is normal. No regional wall motion abnormalities noted. Ejection Fraction = 60-65%. The right ventricular systolic function is normal. The left atrial size is normal. Right atrial size is normal. There is mild tricuspid regurgitation. There is no pericardial effusion. Previous study is not available for comparison Juan Manuel Lee MD 12/18/2018 05:36 PM
[2018-12-18] MEDS ORDERED: PT OWN MED DRAWER 7, Y5N ONE (19:39)
[2018-12-18] MEDS: ATORVASTATIN CA 20 MG TABLET (FP) PO SCH (21:30)
[2018-12-19] MEDS: HEPARIN NA (PORCINE) 5,000 UNITS/ML 1ML VIAL SQ SCH ×2 (06:13→14:00)
[2018-12-19 06:23] LABS: HEMATOCRIT 31.3 % (35.4-49); HEMOGLOBIN 11.2 GM/dL (11.7-16.9); MCH 32.8 pg (25.7-33.7); MCHC 35.8 g/dl (32.0-35.9); MEAN CELL VOLUME 91.7 fl (80-96); MEAN PLT VOLUME 7.4 fl (7.5-11.1); PLATELET COUNT 119 K/MM3 (134-434); RBC 3.41 M/mm3 (4.00-5.60); RDW 12.1 % (11.9-15.9); WHITE BLOOD COUNT 4.1 K/mm3 (4.0-10.0)
[2018-12-19 06:42] LABS: ANION GAP 3 MMOL/L (8-16); BLOOD UREA NITROGEN 23 mg/dL (7-18); CALCIUM 7.8 mg/dL (8.5-10.1); CHLORIDE 106 mmol/L (98-107); CO2 28 mmol/L (21-32); GLUCOSE,RANDOM 92 mg/dL (74-106); MAGNESIUM 2.4 mg/dL (1.8-2.4); PHOSPHOROUS 3.4 mg/dL (2.5-4.9); SODIUM 138 mmol/L (136-145)
[2018-12-19] MEDS ORDERED: PT OWN MED DRAWER 7, Y5N ONE (09:33)
[2018-12-19] MEDS: carBAMazepine 200 MG TABLET PO SCH (09:53)
[2018-12-19] MEDS: ASPIRIN 81 MG CHEWABLE TABLETS PO SCH (09:53)
[2018-12-19] MEDS: PRIMIDONE 50 MG TABLET PO SCH (09:53)
[2018-12-19] MEDS ORDERED: amLODIPine BESYLATE 10 MG TABLET (FP) PO SCH (13:00)
--- NOTE | 2018-12-19 13:30 | EKG ---
Test Reason : Blood Pressure : / mmHG Vent. Rate : 079 BPM Atrial Rate : 079 BPM P-R Int : 192 ms QRS Dur : 106 ms QT Int : 398 ms P-R-T Axes : 080 010 061 degrees QTc Int : 456 ms NORMAL SINUS RHYTHM MINIMAL VOLTAGE CRITERIA FOR LVH, MAY BE NORMAL VARIANT BORDERLINE ECG WHEN COMPARED WITH ECG OF 16-DEC-2018 18:39, NO SIGNIFICANT CHANGE WAS FOUND Confirmed by MD WHITNEY, QUINTON ([id number]) on 12/19/2018 1:30:09 PM Referred By: Brandon BRAVO Confirmed By:QUINTON OLSON MD
[2018-12-19 15:11] VITALS: BP 135/69; PULSE 84; TEMP 98.3
--- NOTE | 2018-12-19 15:39 | PN ---
Teaching Attending Note Name of Resident: Miracle Cancino ATTENDING PHYSICIAN STATEMENT I saw and evaluated the patient. I reviewed the resident's note and discussed the case with the resident. I agree with the resident's findings and plan as documented. SUBJECTIVE: No fever or chills . no MONTALVO. OBJECTIVE: NAD, Awake, alert, oriented x3. HEENT: abrasions on nose and deviated septum . CV; RRR, 2/ 6 SM at base with radiation to carotid Lungs: CTAB Ext: no edema or erythema Assessment/Plan: 68 y/o man with h/ho HTN, HLP, and [place] seizures, and recent mechanical fall who presented with slurred speech and abnormal gait. 1- Slurred speech: resolved. DDX include postictal state , VS TIA, VS orthostatic hypotension - tele - MRi with volume loss and less likely b/l frontal hygromas . d/W Dr. Mckenzie, unlikely hygromas , just volume loss - duto CT scan findings of C spine, MRI of C spine was recommended. was not approved as inpatient , so will be done as out pt . d/w dr. mckenzie and he agreed 2- h/o Seizures : - cont Tegretol BID . - has an apt with his neuro in 2 days 3- S/p mechanical fall on 12/15/18. with resultant facial and nasal Fractures. - ENT eval still pending . called twice , still no eval. will refer to out pt 4- H/o HTN: now hypertensive. dc home diuretics and cont rest of BP meds. he needs to check BP daily in am and report to his PCP dispo : PT eval is being done . will dc home today after PT eval
--- NOTE | 2018-12-19 16:01 | DS ---
Physical Exam: SUBJECTIVE: Patient seen and examined OBJECTIVE: Vital Signs Period Temp Pulse Resp BP Sys/Hodges Pulse Ox Last 24 Hr 98 F-99.4 F 74-101 18-20 120-139/69-80 97-97 PHYSICAL EXAM GENERAL: The patient is awake, alert, and fully oriented, in no acute distress. HEAD: Normal with no signs of trauma. EYES: PERRL, extraocular movements intact, sclera anicteric, conjunctiva clear. ENT: Ears normal, nares patent, oropharynx clear without exudates, moist mucous membranes. NECK: Trachea midline, full range of motion, supple. LUNGS: Breath sounds equal, clear to auscultation bilaterally, no wheezes, no crackles, no accessory muscle use. HEART: Regular rate and rhythm, S1, S2 without murmur, rub or gallop. ABDOMEN: Soft, nontender, nondistended, normoactive bowel sounds, no guarding, no rebound, no hepatosplenomegaly, no masses. EXTREMITIES: 2+ pulses, warm, well-perfused, no edema. NEUROLOGICAL: Cranial nerves II through XII grossly intact. Normal speech, gait not observed. PSYCH: Normal mood, normal affect. SKIN: Warm, dry, normal turgor, no rashes or lesions noted. LABS Laboratory Results - last 24 hr 12/19/18 12/19/18 05:30 05:30 WBC 4.1 RBC 3.41 L Hgb 11.2 L Hct 31.3 L MCV 91.7 MCH 32.8 MCHC 35.8 RDW 12.1 Plt Count 119 L MPV 7.4 L Sodium 138 Potassium 4.0 Chloride 106 Carbon Dioxide 28 Anion Gap 3 L BUN 23 H Creatinine 1.0 Creat Clearance w eGFR > 60 Random Glucose 92 Calcium 7.8 L Phosphorus 3.4 Magnesium 2.4 HOSPITAL COURSE: Date of Admission:12/16/18 68 y/o mlae with PMH of epilepsy, HTN, HLD presented to the ED with slurred speech/trouble walkig one day after having a possible syncopal episode v. fall where he suffered a [place] type 2 fracutre. as per patient and famiy; he was dc ; the night befiore after he had a fall and woke up the next morning with confused/garbled speech and problem walking so he came to the hospitl. upon arrival to the hospital head CT was negative however showed chronic possible b/ l subdural hygroma. CT spine showed possible narrowing of spinal canal. patient was admitted for tele monitoring- he got an MRI of the brain which showed that these hygromas were less likely to be hygromas and were not problematic. he was seen by neurology and PT and stable to be dc home with a f/u appt with his neurologist this Date of Discharge: 12/19/18 Minutes to complete discharge: 39 Discharge Summary Reason For Visit: [place] I FRACTURE OF MAXILLA Condition: Improved - Instructions Diet, Activity, Other Instructions: You came to the emergency room after you were having slurred speech and trouble walking at home the day after suffering from a fall, which was likely due to a transient ischemic attack which has since resolved or to hypotension . We did an MRI of your cervical spine as on the CT scan there showed some narrowing of your spinal canal which could have led to some of the issues with your gait. In addition, when you had your fall, you suffered a maxillary fracture for which you we are referring you to an ENT doctor. Please resume all of your home medications except: please do not continue taking your hydrchlorthiazide You will need to get an MRI done as an outpatient to further evaluate the findings that were seen on your CT scan. follow up with Dr. Mckenzie for this Please follow up with Dr. Mendoza, your primary care physician within one week Please follow up with your neurologist, Dr. Mosley for your scheduled appointment this Please follow up with Dr. Michelle, the neurosurgeon, within one week Please follow up with Dr. Queen, the ENT within one week for your fractures *if you begin to experience any dizziness, changes in speech/vision/gait, chest pain, shortness of breath please return to the emergency room immediately check your blood pressure daily in morning , take log to your primary doctor. You migh need further adjustment of your meds in future. if your blood pressure is < 100 /60 do not take your blood pressure meds and call MD. Referrals: Enedelia Mosley [Other] - 1 Week Sumaya Mendoza MD [Primary Care Provider] - 1 Week Raf Michelle MD, FAANS [Staff Physician] - 1 Week Jhonathan Queen MD [Staff Physician] - 1 Week Disposition: HOME - Home Medications Comprehensive Discharge Medication List: Ambulatory Orders Simvastatin 40 mg PO HS 03/16/18 Amlodipine Besylate 10 mg PO DAILY 12/16/18 Aspirin [ASA -] 81 mg PO DAILY 12/16/18 Carbamazepine Xr [Tegretol XR -] 400 mg PO BID 12/16/18 Lisinopril 10 mg PO DAILY 12/16/18 Metoprolol Succinate [Toprol Xl] 200 mg PO DAILY 12/16/18 Multivitamin [One-Daily Multi-Vitamin] 1 each PO DAILY 12/16/18 Primidone 100 mg PO DAILY 12/16/18 Miscellaneous Medical Supply [Outpatient Order] 1 each ASDIR #1 misc Problem List - Problems (1) [place] I fracture of maxilla Code(s): S02.411A - LEFORT I FRACTURE, INITIAL ENCOUNTER FOR CLOSED FRACTURE Qualifiers: Encounter type: initial encounter Fracture type: closed Qualified Code(s) : S02.411A - [place] I fracture, initial encounter for closed fracture (2) TIA (transient ischemic attack) Code(s): G45.9 - TRANSIENT CEREBRAL ISCHEMIC ATTACK, UNSPECIFIED (3) Closed head injury Code(s): S09.90XA - UNSPECIFIED INJURY OF HEAD, INITIAL ENCOUNTER Qualifiers: Encounter type: initial encounter Qualified Code(s): S09.90XA - Unspecified injury of head, initial encounter This patient is new to me today: No Emergency Visit: Yes ED Registration Date: 12/16/18 Care time: The patient presented to the Emergency Department on the above date and was hospitalized for further evaluation of their emergent condition. Critical Care patient: No - Discharge Referral Referred to [facility] No
--- NOTE | 2018-12-19 20:10 | CONSULT ---
Consult - text type - Consultation Consultation Note: ENT consult. 68-year-old man fell on his face, sustaining what a CT scan suggests is a [place] fracture. He has no complaints of pain, difficult nasal breathing, or upper or lower jaw discomfort. Physical examination reveals a well-developed, well nourished man lying comfortably in bed. The face shows scattered ecchymosis. Nasal passages are grossly unremarkable. Oral cavity and oropharynx reveal minimal dentition, and no other abnormalities. Impression: Possible [place] fracture Recommendation: associate professor of media arts consultation. Reconsult when necessary.
[2018-12-20] MEDS ORDERED: LISINOPRIL 10 MG TABLET (FP) PO SCH (10:00)
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
== END 2018-12-19 16:29 | disposition home or self-care (01) | DRG 157 ==
LOC: JER 18:02 → JERBED 20:36 → J2W 12-17 15:20
PROVIDERS: ADMIT Internal Medicine; ATTEND Internal Medicine
DX: S02.411A LeFort I fracture, initial encounter for closed fracture (principal); S06.5X0A Traumatic subdural hemorrhage without loss of consciousness, initial encounter; N17.9 Acute kidney failure, unspecified; S02.80XA Fracture of other specified skull and facial bones, unspecified side, initial encounter for closed fracture; S02.2XXA Fracture of nasal bones, initial encounter for closed fracture; S00.83XA Contusion of other part of head, initial encounter; I25.10 Atherosclerotic heart disease of native coronary artery without angina pectoris; I10 Essential (primary) hypertension; E78.5 Hyperlipidemia, unspecified; G40.909 Epilepsy, unspecified, not intractable, without status epilepticus; R25.1 Tremor, unspecified; R47.81 Slurred speech; R26.9 Unspecified abnormalities of gait and mobility; F17.210 Nicotine dependence, cigarettes, uncomplicated; F07.81 Postconcussional syndrome; W18.39XA Other fall on same level, initial encounter; Y92.098 Other place in other non-institutional residence as the place of occurrence of the external cause; S00.81XA Abrasion of other part of head, initial encounter
CPT/HCPCS: 36415; 70450-TC; 70486-TC; 70553-TC; 72125-TC; 80048; 80053; 80061; 80156; 82550; 83036; 83721; 83735; 84100; 84484; 85025; 85027; 85610; 86850; 86900; 86901; 93005; 93010; 93306-TC; 93880-TC; 97116-GP; 97161-GP; 99281-25; 99284-25; J1644; J7030

== ENCOUNTER 2021-10-21 15:10 | Emergency (ER) | payer OTHER ==
[2021-10-21 15:32] VITALS: BP 162/78; PULSE 75; TEMP 98.8; BMI 21.9
== END 2021-10-21 18:00 | disposition home or self-care (01) ==
LOC: JER 15:10
DX: R27.8 Other lack of coordination (principal)
CPT/HCPCS: 99281-25

== ENCOUNTER 2023-03-22 13:06 | Emergency (ER) | payer OTHER ==
[2023-03-22 13:24] VITALS: BP 147/64; PULSE 71; RESP 20; TEMP 98.7; BMI 20.7
[2023-03-22] MEDS ORDERED: ACETAMINOPHEN 500 MG TABLET (FP) PO ONE (14:02)
[2023-03-22] MEDS ORDERED: DIPHTH,PERTUSS(ACELL),TET 0.5 ML DISP.SYRIN IM ONE ×2 (14:17→14:34)
[2023-03-22] MEDS ORDERED: ACETAMINOPHEN 325 MG TABLET (FP) ONE (14:34)
== END 2023-03-22 17:14 | disposition home or self-care (01) ==
LOC: JER 13:06 → JERFT 13:06 → JER 17:14
PROC: 3E0234Z Introduction of Serum, Toxoid and Vaccine into Muscle, Percutaneous Approach (ICD-10-PCS; principal; 2023-03-22)
DX: S00.212A Abrasion of left eyelid and periocular area, initial encounter (principal); S00.31XA Abrasion of nose, initial encounter; S00.81XA Abrasion of other part of head, initial encounter; W01.198A Fall on same level from slipping, tripping and stumbling with subsequent striking against other object, initial encounter
CPT/HCPCS: 70450-TC; 70486-TC; 72125-TC; 90471; 90715; 99284-25